=== PATIENT | female | born 2000 | race Caucasian/White ===

== ENCOUNTER → 2024-09-12 09:48 | Outpatient (REF) | payer OTHER, SELFPAY | LOC: HWRAD 09:48 | PROVIDERS: ATTENDING PHYSICIAN Advanced Practice Midwife | DX: N83.202 Unspecified ovarian cyst, left side (principal) | CPT/HCPCS: 76830; 76856 ==

== ENCOUNTER → 2024-09-13 17:50 | Outpatient (REF) | payer OTHER, SELFPAY | LOC: MRI 3T 17:50 | PROVIDERS: ATTENDING PHYSICIAN Advanced Practice Midwife | DX: N83.202 Unspecified ovarian cyst, left side (principal) | CPT/HCPCS: 72197; A9575 ==